=== PATIENT | female | born 1980 | race Caucasian/White ===

== ENCOUNTER 2018-01-07 07:17 | Emergency (ER) | payer MEDICARE ==
[2018-01-07 07:29] VITALS: BP 133/81; PULSE 88; TEMP 99.4; O2SAT 99
[2018-01-07 07:30] VITALS: BMI 29.1
[2018-01-07] MEDS ORDERED: Sodium Chloride 0.9% 1,000 ML IV STA (07:42)
--- NOTE | 2018-01-07 07:48 | ED PDOC ---
HPI: General Adult Time Seen by Provider: 01/07/18 07:25 Chief Complaint (Nursing): Cough, Cold, Congestion Chief Complaint (Provider): Cough, Congestion History Per: Patient History/Exam Limitations: no limitations Onset/Duration Of Symptoms: Other (x3 months) Current Symptoms Are (Timing): Still Present Additional Complaint(s): 37 year old female presents to the ED complaining of nasal congestion, cough, and vomiting for the past 3 months but worse over the past 3 days. Patient is unable to tolerate PO. Denies abdominal pain and vaginal bleeding. Patient states she has been treated for a sinus infection in the past. Patient is approximately 9 weeks and has not felt movement. PMD: none provided Past Medical History Reviewed: Historical Data, Nursing Documentation, Vital Signs Vital Signs: Last Vital Signs Temp 99.4 F 01/07/18 07:28 Pulse 88 01/07/18 07:28 Resp BP 133/81 01/07/18 07:28 Pulse Ox 99 01/07/18 07:28 - Medical History PMH: Asthma Other PMH: Sinusitis - Surgical History Surgical History: No Surg Hx - Family History Family History: States: Unknown Family Hx - Home Medications Home Medications: Ambulatory Orders Medication Instructions Recorded Amoxicillin/Potassium Clav 1 tab PO TID #30 tab 01/07/18 [Augmentin 500 mg-125 mg] Promethazine/Codeine 5 ml PO Q8 #60 ml 01/07/18 [Codeine/Promethazine 10 MG/5 Ml-6.25 MG/5 Ml] - Allergies Allergies/Adverse Reactions: Allergies Allergy/AdvReac Type Severity Reaction Status Date / Time No Known Allergies Allergy Verified 01/07/18 07:39 Review of Systems ROS Statement: Except As Marked, All Systems Reviewed And Found Negative ENT: Positive for: Nose Congestion Respiratory: Positive for: Cough Gastrointestinal: Positive for: Vomiting. Negative for: Abdominal Pain Genitourinary Female: Negative for: Vaginal Bleeding Physical Exam - Reviewed Nursing Documentation Reviewed: Yes Vital Signs Reviewed: Yes - Physical Exam Appears: Positive for: Non-toxic, No Acute Distress Head Exam: Positive for: ATRAUMATIC, NORMOCEPHALIC Skin: Positive for: Normal Color, Warm, Dry Eye Exam: Positive for: Normal appearance ENT: Positive for: Other (Throat erythematous with no exudates; mucous membranes tacky) Neck: Positive for: Normal, Painless ROM, Supple Cardiovascular/Chest: Positive for: Regular Rate, Rhythm, Other (Left axillary tenderness) Respiratory: Positive for: Normal Breath Sounds. Negative for: Rales, Rhonchi, Wheezing, Respiratory Distress Gastrointestinal/Abdominal: Positive for: Normal Exam, Soft. Negative for: Tenderness Back: Positive for: Normal Inspection. Negative for: L CVA Tenderness, R CVA Tenderness Extremity: Positive for: Normal ROM. Negative for: Tenderness, Swelling Neurologic/Psych: Positive for: Alert, Oriented. Negative for: Motor/Sensory Deficits - Laboratory Results Result Diagrams: 01/07/18 07:51 01/07/18 07:51 - ECG O2 Sat by Pulse Oximetry: 99 (RA) Pulse Ox Interpretation: Normal Medical Decision Making Medical Decision Making: Initial Plan: --Beta HCG --CMP --ED urine dipstick --CBC --Sodium chloride 1000mL IV --Influenza A B stat --Rapid strep stat --OB transvaginal US Scribe Attestation: Documented by Channing Sheridan acting as a scribe for Nikolai Childs MD. Provider Scribe Attestation: All medical record entries made by the Scribe were at my direction and personally dictated by me. I have reviewed the chart and agree that the record accurately reflects my personal performance of the history, physical exam, medical decision making, and the department course for this patient. I have also personally directed, reviewed, and agree with the discharge instructions and disposition. Disposition - Clinical Impression Clinical Impression: Sinusitis - Patient ED Disposition Is Patient to be Admitted: No Counseled Patient/Family Regarding: Studies Performed, Diagnosis, Need For Followup, Rx Given - Disposition Disposition: Routine/Home Disposition Time: 10:11 Condition: FAIR Prescriptions: Amoxicillin/Potassium Clav [Augmentin 500 mg-125 mg] 1 tab PO TID #30 tab Promethazine/Codeine [Codeine/Promethazine 10 MG/5 Ml-6.25 MG/5 Ml] 5 ml PO Q8 #60 ml Instructions: Sinusitis in Adults Forms: [facility] (Latvian)
[2018-01-07 08:01] LABS: BASO # 0.1 K/uL (0.0-0.2); BASO % 0.7 % (0.0-2.0); EOS % 0.4 % (0.0-4.0); HEMOGLOBIN 12.8 g/dL (12.0-16.0); LYMPH # 1.5 K/uL (1.0-4.3); LYMPH % 14.7 % (20.0-40.0); MEAN CELL VOLUME 88.2 fl (81.0-99.0); MEAN CORPUSCULAR HEMOGLOBIN 29.4 pg (27.0-31.0); MEAN CORPUSCULAR HGB CONC 33.3 g/dL (33.0-37.0); MEAN PLATELET VOLUME 7.6 fl (7.2-11.7); MONO # 1.5 K/uL (0.0-0.8); MONO % 14.5 % (0.0-10.0); NEUT # 7.1 K/uL (1.8-7.0); NEUT % 69.7 % (50.0-75.0); RBC 4.34 Mil/uL (3.80-5.20); RED CELL DISTRIBUTION WIDTH 14.2 % (11.5-14.5); WHITE BLOOD COUNT 10.1 K/uL (4.8-10.8)
[2018-01-07 08:20] LABS: BLOOD UREA NITROGEN 5 mg/dl (7-17)
[2018-01-07 08:21] LABS: ALB/GLOB RATIO 1.1 (1.0-2.1); CALCIUM 8.9 mg/dL (8.4-10.2); GFR NON-AFRICAN AMERICAN > 60
[2018-01-07 08:22] LABS: ALT/SGPT 25 U/L (9-52); AST/SGOT 27 U/L (14-36)
[2018-01-07] MEDS ORDERED: Albuterol-Ipratrop 3 mg / 0.5 (3 ml) UD IH STA (09:03)
[2018-01-07] MEDS ORDERED: Albuterol 0.083% Inhal Sol (2.5 mg/3 mL) UD INH STA (09:04)
[2018-01-07] MEDS ORDERED: Albuterol 0.083% Inhal Sol (2.5 mg/3 mL) UD ONE (09:08)
[2018-01-07] MEDS ORDERED: Promethazine/Cod 6.25mg-10mg/5ml Syr UD PO STA (10:19)
--- NOTE | 2018-01-07 10:29 | US ---
Date of service: 01/07/2018 PROCEDURE: HISTORY: Decreased movement COMPARISON: TECHNIQUE: FINDINGS: The uterus is normal in size. There is a 9 week and 6 day intrauterine based on the crown-rump length of 2.7 cm. heart motion is identified. Yolk sac present. The ovaries are unremarkable. IMPRESSION: As above.
== END 2018-01-07 10:30 | disposition home or self-care (01) ==
LOC: H.ER 07:17
DX: J32.9 Chronic sinusitis, unspecified (principal); O99.511 Diseases of the respiratory system complicating pregnancy, first trimester; Z3A.09 9 weeks gestation of pregnancy; O21.9 Vomiting of pregnancy, unspecified
CPT/HCPCS: 76817; 80053; 84702; 85025; 87070; 87430; 87804; 94640; 99282; J7030